=== PATIENT | female | born 1995 | race Caucasian/White ===

== ENCOUNTER 2017-10-05 05:57 | Emergency (ER) | payer MEDICAID ==
[~2017-10-05] VITALS: Ht 162.6 cm; Wt 76.0 kg
[2017-10-05 10:36] LABS: CLARITY URINE CLEAR (CLEAR); COLOR URINE YELLOW (YELLOW); KETONES URINE NEGATIVE (NEGATIVE); LEUKOCYTE ESTERASE URINE NEGATIVE (NEGATIVE); NITRITE URINE NEGATIVE (NEGATIVE); OCCULT BLOOD URINE NEGATIVE (NEGATIVE); PH URINE 6.5 (4.5-8.0); PROTEIN URINE NEGATIVE (NEGATIVE); SPECIFIC GRAVITY URINE 1.026 (1.005-1.030); UROBILINOGEN URINE 0.2 E.U./dL (0.2-1.0)
[2017-10-05] MEDS ORDERED: KETOROLAC 30MG/ML VIAL IV ONE (11:30)
[2017-10-05] MEDS ORDERED: ONDANSETRON HCL 4MG/2ML VIAL IV ONE (11:30)
[2017-10-05] MEDS ORDERED: SODIUM CHLORIDE 0.9% 1,000 ML IV ONE (11:30)
[2017-10-05 14:37] VITALS: BP 93/56
== END 2017-10-05 14:38 | disposition home or self-care (01) ==
LOC: ER 11:15
DX: J06.9 Acute upper respiratory infection, unspecified (principal); J02.8 Acute pharyngitis due to other specified organisms; B97.89 Other viral agents as the cause of diseases classified elsewhere; R11.2 Nausea with vomiting, unspecified
CPT/HCPCS: 71045; 81003; 81025; 87070; 87430; 87804; 96361; 96374; 96375; 99285; J1885; J2405; J7030; Z7610

== ENCOUNTER 2023-12-28 16:42 | Emergency (ER) | payer MEDICAID ==
[~2023-12-28] VITALS: Ht 162.6 cm; Wt 81.0 kg
[2023-12-28 16:57] VITALS: O2SAT 100
[2023-12-28 17:50] LABS: CLARITY URINE CLEAR (CLEAR); COLOR URINE YELLOW (YELLOW); GLUCOSE URINE NEGATIVE (NEGATIVE); KETONES URINE NEGATIVE (NEGATIVE); LEUKOCYTE ESTERASE URINE NEGATIVE (NEGATIVE); NITRITE URINE NEGATIVE (NEGATIVE); OCCULT BLOOD URINE NEGATIVE (NEGATIVE); PH URINE 6.5 (4.5-8.0); PROTEIN URINE NEGATIVE (NEGATIVE); SPECIFIC GRAVITY URINE 1.023 (1.005-1.030)
[2023-12-28] MEDS: ACETAMINOPHEN 325MG TABLET PO ONE (18:30)
[2023-12-28 18:46] LABS: BASOPHILS % 0.4 % (0.0-2.0); EOSINOPHILS % 1.7 % (0.0-5.0); HEMATOCRIT. 38.6 % (36.0-48.0); HEMOGLOBIN. 13.3 g/dL (12.0-16.0); LYMPHOCYTES % 19.6 % (20.0-50.0); MEAN CORPUSCULAR HGB CONC 34.5 g/dL (31.0-37.0); MEAN CORPUSCULAR VOLUME 90.1 fL (81.0-99.0); MEAN PLATELET VOLUME 7.6 fl (7.4-10.4); MONOCYTES % 7.3 % (2.0-8.0); PLATELET 380 x1000/uL (130-400); RED BLOOD CELL COUNT 4.28 mill/uL (4.2-5.4); RED CELL DISTRIBUTION WIDTH 16.1 % (11.6-14.6)
[2023-12-28 18:51] LABS: CHLORIDE 102 mEq/L (98-107); POTASSIUM 3.9 mEq/L (3.5-5.1); SODIUM 134 mEq/L (136-145)
[2023-12-28 18:52] LABS: CALCIUM 10.2 mg/dL (8.7-10.4); CARBON DIOXIDE 25 mEq/L (21-32)
[2023-12-28 18:57] LABS: CREATININE 0.6 mg/dL (0.6-1.0); GLUCOSE 85 mg/dL (70-105); UREA NITROGEN BLOOD 10 mg/dL (9-23)
[2023-12-28 19:11] LABS: B-HCG QUANTITATIVE 34180 mIU/mL (<3)
[2023-12-28] MEDS ORDERED: TOPUD PO (20:01)
[2023-12-28 22:00] VITALS: BP 105/62; PULSE 70; RESP 19; TEMP 98.3
== END 2023-12-28 22:18 | disposition home or self-care (01) ==
LOC: ER 16:42
DX: O20.0 Threatened abortion (principal); Z3A.10 10 weeks gestation of pregnancy; Z98.890 Other specified postprocedural states
CPT/HCPCS: 36415; 76801; 80048; 81003; 81025; 84702; 85025; 86850; 86900; 99284

== ENCOUNTER 2024-04-10 13:51 | Emergency (ER) | payer MEDICAID ==
[~2024-04-10] VITALS: Ht 162.6 cm; Wt 82.0 kg
[~2024-04-10 13:51] MED LIST: TOPUD PO
[2024-04-10 14:00] VITALS: O2SAT 96
[2024-04-10] MEDS: BENZONATATE 200MG CAPSULE PO STA (14:15)
[2024-04-10] MEDS ORDERED: BENZ200C52 MT (14:17)
[2024-04-10 15:04] VITALS: BP 113/60; PULSE 80; RESP 16; TEMP 37.11408; O2SAT 96
== END 2024-04-10 15:30 | disposition home or self-care (01) ==
LOC: ER 13:54
DX: O23.42 Unspecified infection of urinary tract in pregnancy, second trimester (principal); N39.0 Urinary tract infection, site not specified; Z3A.26 26 weeks gestation of pregnancy
CPT/HCPCS: 99283

== ENCOUNTER 2025-04-05 01:35 | Emergency (ER) | payer OTHER ==
[~2025-04-05] VITALS: Ht 162.6 cm; Wt 82.0 kg
[~2025-04-05 01:35] MED LIST changes: +BENZ200C52 MT
[2025-04-05 01:47] VITALS: O2SAT 98
[2025-04-05 02:05] VITALS: BP 108/65; PULSE 80; RESP 16; TEMP 36.9; O2SAT 99
[2025-04-05] MEDS ORDERED: OFLO5DRO4 LEFT EAR (02:32)
== END 2025-04-05 02:44 | disposition home or self-care (01) ==
LOC: ER 01:35
DX: H60.90 Unspecified otitis externa, unspecified ear (principal)
CPT/HCPCS: 99283

== ENCOUNTER 2025-06-12 20:31 | Emergency (ER) | payer OTHER ==
[~2025-06-12] VITALS: Ht 162.6 cm; Wt 87.2 kg
[~2025-06-12 20:31] MED LIST changes: +OFLO5DRO4 LEFT EAR
[2025-06-12 20:37] VITALS: O2SAT 99
[2025-06-12] MEDS ORDERED: BO1 TP (23:14)
[2025-06-12] MEDS: BACITRACIN ZINC OINT UDPKT TOP ONE (23:48)
[2025-06-12 23:54] VITALS: BP 124/71; PULSE 81; RESP 18; TEMP 36.8; O2SAT 99
== END 2025-06-12 23:59 | disposition home or self-care (01) ==
LOC: ER 21:38
DX: T24.212A Burn of second degree of left thigh, initial encounter (principal); X08.8XXA Exposure to other specified smoke, fire and flames, initial encounter; Y93.89 Activity, other specified; Y92.89 Other specified places as the place of occurrence of the external cause
CPT/HCPCS: 81025; 99282